=== PATIENT | male | born 1955 | race Caucasian/White ===

== ENCOUNTER 2020-10-14 10:32 | Inpatient (IN) | payer OTHER ==
[~2020-10-14] VITALS: Ht 182.9 cm; Wt 89.8 kg
--- NOTE | 2020-10-14 10:32 | NUR ---
PT BIB SELF C/O L ARM NUMBNESS AND DIZZINESS X 3O MIN TRAILER CHIEF. PT IS AAOX4, NOT IN RESPIRATORY DISTRESS, HOOKED TO DIRECTOR OF EMERGENCY NURSING, KEPT RESTED AND COMFORTABLE. WILL CONTINUE TO MONITOR.
--- NOTE | 2020-10-14 10:43 | NUR ---
blood sugar 128.
[2020-10-14] MEDS ORDERED: MULT-447 PO (10:44)
[2020-10-14] MEDS ORDERED: CHOL100062 PO (10:44)
[2020-10-14] MEDS ORDERED: OMEG1CAP PO (10:44)
--- NOTE | 2020-10-14 10:45 | NUR ---
IV LINE ESTABLISHED BLOOD DRAWN AND SENT TO LAB.
[2020-10-14] MEDS ORDERED: IBUP-23 PO (10:56)
[2020-10-14] MEDS ORDERED: ASPIRIN 300 MG/SUPP.RECT RC ONE ×2 (11:30→11:54)
[2020-10-14 11:47] LABS: BASOPHILS # (AUTO) 0.1 K/uL (0.0-0.2); EOSINOPHILS % (AUTO) 2.3 % (0.0-6.0); HEMATOCRIT 46 % (39-51); HEMOGLOBIN 15.7 g/dL (13.5-17.5); LYMPHOCYTES # (AUTO) 2.8 K/uL (0.8-4.8); MEAN CORPUSCULAR HGB CONC 34 g/dl (31.0-36.0); MEAN CORPUSCULAR VOLUME 93 fL (80-96); MONOCYTES # (AUTO) 0.6 K/uL (0.1-1.30); MONOCYTES % (AUTO) 8.5 % (2.0-12.0); NEUTROPHILS # (AUTO) 3.1 K/uL (1.8-8.9); NEUTROPHILS % (AUTO) 46.2 % (43.0-81.0); PLATELET COUNT (AUTO) 239 K/uL (150-450); RED BLOOD CELL COUNT(AUTO) 4.95 MIL/uL (4.5-6.0); WHITE BLOOD COUNT (AUTO) 6.7 K/uL (4.3-11.0)
[2020-10-14 11:54] LABS: CALCIUM, SERUM 8.8 mg/dL (8.5-10.1); CREATININE 0.9 mg/dL (0.6-1.3); POTASSIUM 3.9 mmol/L (3.5-5.1)
[2020-10-14] MEDS ORDERED: ASPIRIN 325 MG TABLET ONE (12:00)
[2020-10-14 12:01] LABS: ALBUMIN 3.9 g/dL (3.4-5.0); BILIRUBIN,DIRECT 0.1 mg/dL (0.0-0.2); BILIRUBIN,TOTAL 0.6 mg/dL (0.2-1.0)
--- NOTE | 2020-10-14 12:18 | NUR ---
MOVE SHEET SUBMITTED AND CALLED FOR TELE BED.
[2020-10-14] MEDS ORDERED: HEPARIN INFUSION/D5W 500 ML IV PRN (12:30)
[2020-10-14] MEDS ORDERED: ASPIRIN 325 MG TABLET PO ONE (12:30)
[2020-10-14] MEDS ORDERED: hydrALAZINE HCL IV 20 MG VIAL IV ONE (12:30)
[2020-10-14] MEDS ORDERED: hydrALAZINE HCL IV 20 MG VIAL ONE (12:35)
--- NOTE | 2020-10-14 12:48 | NUR ---
MEDICATED FOR ELEVATED BP PER ERMD ORDER, PT ROB WELL. DENIES CP, SOB, N/V AT THIS TIME. PT STILL C/O SLIGHT DIZZINESS & NUMBNESS ON LT ARM. WILL CONT TO MONITOR.
[2020-10-14] MEDS ORDERED: HEPARIN INFUSION/D5W 500 ML IV ONE (13:01)
[2020-10-14] MEDS ORDERED: MAG HYDROX/AL HYDROX/SIMETH 30 ML UDC PO PRN (14:30)
[2020-10-14] MEDS ORDERED: MAGNESIUM HYDROXIDE 30 ML UDC PO PRN (14:30)
[2020-10-14] MEDS ORDERED: ONDANSETRON HCL/PF 4 MG/2 ML VIAL IVP PRN (14:30)
[2020-10-14] MEDS ORDERED: ACETAMINOPHEN 325 MG TABLET PO PRN (14:30)
[2020-10-14] MEDS ORDERED: Z GUARD REMEDY 2 OZ OINT TP PRN (14:30)
[2020-10-14] MEDS ORDERED: hydrALAZINE HCL IV 20 MG VIAL IV PRN (14:30)
[2020-10-14] MEDS ORDERED: LIDOCAINE /MPF 1% VIAL 5 ML VIAL ONE (15:31)
--- NOTE | 2020-10-14 15:37 | NUR ---
MEDICATED FOR ELEVATED BP, PT ROB WELL. DENIES CP, SOB, N/V AT THIS TIME. WILL CONT TO MONITOR.
[2020-10-14] MEDS ORDERED: LIDOCAINE HCL/MPF 1% 30 ML VIAL IJ ONE (17:20)
--- NOTE | 2020-10-14 18:13 | NUR ---
PT ASLEEP EASILY AWAKEN BY VERBAL STIMULI. DENIES CP, SOB, DIZZINESS, N/V AT THIS TIME. WILL CONT TO MONITOR.
--- NOTE | 2020-10-14 20:40 | NUR ---
REPORT GIVEN TO MONSTER CARDENAS FOR [facility].
--- NOTE | 2020-10-14 21:00 | NUR ---
SHIATSU THERAPISTOTR DRIVER NOTE PATIENT ARRIVED ON FLOOR, ALERT/ORIENTED X 4, PT ABLE TO MAKE NEEDS KNOWN. PT DENIES CHEST PAIN AND NAUSEA. PT STATES HE IS NO LONGER FEELING THE LEFT ARM NUMBNESS OR DIZZINESS. PT ON TELEMONITORING READING SINUS [place]IGHT[place], HR; 51. LEFT AC #18G INTACT AND RUNNING HEPARIN DRIP (1350 UNITS/HR, 27 ML/HR). MANAGER CLINICAL RESEARCH CURRENTLY HERE FOR LAB DRAW FOR APTT. PT AMBULATORY AND STEADY WITH BRP. PT SKIN INTACT. BELONGINGS DOCUMENTED AND PLACED IN CHART. ORIENTED PATIENT TO ROOM AND HOW TO USE CALL LIGHT. SAFETY MEASURES IN PLACE: CALL LIGHT WITHIN REACH, BED LOCKED IN LOW POSITION, SIDE RAILS UP X 2. WILL CONTINUE TO MONITOR PATIENT
[2020-10-14] MEDS: METOPROLOL TARTRATE 25 MG TABLET PO SCH (21:45)
[2020-10-14] MEDS: hydrALAZINE HCL 50 MG TABLET PO SCH (21:53)
--- NOTE | 2020-10-14 21:55 | NUR ---
[place] MACHINE OPERATOR NOTES PT'S BP ELEVATED 161/96, HR: 52. eMAR SHOWS SCHEDULED APRESOLINE 50 MG PO AND LOPRESSOR 25 MG PO THAT WERE DUE BEFORE MY SHIFT AND BEFORE PATIENT ARRIVED ON 3W, PER ER NURSE THEY WERE NOT GIVEN IN THE ER. PER ER NURSE ONLY ASPIRIN AND APRESOLINE IV 10 MG WERE GIVEN IN ER. SPOKE TO CHARGE NURSE MARCELA REGARDING THE SCHEDULED APRESOLINE 50 MG PO AND LOPRESSOR 25 MG PO THAT WERE NOT GIVEN IN THE ER, HE STATED TO ONLY GIVE THE APRESOLINE AND NOT BOTH MEDICATIONS SINCE PATIENT HAS HIGH BP BUT IS BRADYCARDIC. APRESOLINE 50 MG PO GIVEN ORDERED. WILL CONTINUE TO MONITOR PATIENT
[2020-10-14 22:00] VITALS: BP 161/96
--- NOTE | 2020-10-14 22:00 | NUR ---
TRANSLATION DIRECTOR NOTES APTT = 51.5, NO CHANGES TO HEPARIN DRIP DOSAGE BASED ON WEIGHT BASED HEPARIN DOSING ORDERS. WILL CONTINUE TO MONITOR PATIENT
[2020-10-15] VITALS: BP 144/76
[2020-10-15 04:00] VITALS: BP 145/75
[2020-10-15 06:12] LABS: BASOPHILS # (AUTO) 0.1 K/uL (0.0-0.2); BASOPHILS % (AUTO) 1.1 % (0.0-2.0); EOSINOPHILS % (AUTO) 2.6 % (0.0-6.0); HEMATOCRIT 44 % (39-51); HEMOGLOBIN 15.4 g/dL (13.5-17.5); LYMPHOCYTES # (AUTO) 2.6 K/uL (0.8-4.8); LYMPHOCYTES % (AUTO) 32.3 % (20.0-44.0); MEAN CORPUSCULAR HGB CONC 35 g/dl (31.0-36.0); MEAN CORPUSCULAR VOLUME 93 fL (80-96); MONOCYTES # (AUTO) 0.6 K/uL (0.1-1.30); MONOCYTES % (AUTO) 7.1 % (2.0-12.0); NEUTROPHILS # (AUTO) 4.5 K/uL (1.8-8.9); NEUTROPHILS % (AUTO) 56.9 % (43.0-81.0); PLATELET COUNT (AUTO) 231 K/uL (150-450); RED BLOOD CELL COUNT(AUTO) 4.79 MIL/uL (4.5-6.0); WHITE BLOOD COUNT (AUTO) 7.9 K/uL (4.3-11.0)
[2020-10-15 06:22] LABS: CALCIUM, SERUM 8.7 mg/dL (8.5-10.1); PHOSPHORUS 4.2 mg/dL (2.5-4.9); POTASSIUM 3.4 mmol/L (3.5-5.1)
--- NOTE | 2020-10-15 06:30 | NUR ---
ACCOUNT UNDERWRITER CLOSING NOTES PT AWAKE IN BED WATCHING TV, ALERT/ORIENTED X 4, PT ABLE TO MAKE NEEDS KNOWN. PT DENIES CHEST PAIN AND NAUSEA. TELEMONITORING READING SINUS LEIGHTON, HR; 51. LEFT AC #18G INTACT AND RUNNING HEPARIN DRIP (1350 UNITS/HR, 27 ML/HR), NO S/S OF BLEEDING. MEDICATIONS GIVEN ORDERED, PT NEEDS MET THROUGHOUT SHIFT. SAFETY MEASURES IN PLACE: CALL LIGHT WITHIN REACH, BED LOCKED IN LOW POSITION, SIDE RAILS UP X 2. WILL ENDORSE TO DAY SHIFT NURSE FOR CONTINUITY OF CARE
--- NOTE | 2020-10-15 08:00 | NUR ---
tele junior php developer: notes ptt 57.7. no change in rate and to continue heparin drip at 1350units/hr per protocol as ordered. next ptt tomorrow morning.
[2020-10-15 08:20] VITALS: BP 150/88
[2020-10-15] MEDS: HEPARIN INFUSION/D5W 500 ML IV PRN (08:29)
[2020-10-15] MEDS: METOPROLOL TARTRATE 25 MG TABLET PO SCH ×2 (08:43→16:56)
--- NOTE | 2020-10-15 08:45 | NUR ---
tele building construction professor: carido consult seen and examined by dr. malloy with new orders. orders acknowledged. pt for cta today and verbalized understanding. consent signed and placed in chart. will continue to monitor.
[2020-10-15] MEDS: hydrALAZINE HCL 50 MG TABLET PO SCH ×3 (08:52→16:57)
[2020-10-15] MEDS: ASPIRIN 325 MG TABLET PO SCH (08:52)
[2020-10-15] MEDS: VALSARTAN 80 MG TABLET PO SCH (08:52)
[2020-10-15] MEDS ORDERED: POTASSIUM CHLORIDE 20 MEQ TAB.PRT.SR PO ONE (10:00)
[2020-10-15] MEDS ORDERED: IOHEXOL-350 100 ML VIAL IV ONE (10:01)
[2020-10-15] MEDS ORDERED: IV NS 0.9% 250 ML IV ONE (10:01)
--- NOTE | 2020-10-15 10:10 | NUR ---
tele director of restaurants: notes pt down for cta via wheelchair accompanied by tech at this time.
[2020-10-15] MEDS ORDERED: NITROGLYCERIN 0.4 MG/TAB BOTTLE ONE (10:28)
[2020-10-15] MEDS ORDERED: METOPROLOL TARTRATE 50 MG TABLET PO PRN (10:30)
[2020-10-15] MEDS ORDERED: NITROGLYCERIN 0.4 MG/TAB BOTTLE SL ONE (10:30)
--- NOTE | 2020-10-15 10:43 | NUR ---
Report given to MONSTER Mckeon for [place]. Patient transported back to [place] [id number] via [facility]. Patient remains in stable condition.
--- NOTE | 2020-10-15 10:50 | NUR ---
tele paste mixer: notes back from cta. no distress noted. instructed to call for assistance. remains on heparin drip at 27ml/hr. will continue to monitor.
[2020-10-15] MEDS ORDERED: LISINOPRIL (10MG) 10 MG TABLET PO SCH (11:00)
--- NOTE | 2020-10-15 11:15 | NUR ---
tele victim advocate: md visit dr. ron at bedside and updating pt plan of care. pt verbalized understanding. informed md that dr. malloy started him on diovan and received verbal order to d'c lisinopril. order carried out and acknowledged.
--- NOTE | 2020-10-15 11:44 | NUR ---
tele hospice volunteer: notes cta resulted. dr. ron and dr. malloy notified and made aware. heparin drip to continue per md. dr. menjivar was notified by dr. malloy per dr. ron to see pt and possible angiogram tomorrow. pt made aware and verbalized understanding. will continue to monitor.
[2020-10-15 12:00] VITALS: BP 129/79
--- NOTE | 2020-10-15 15:25 | NUR ---
tele agricultural agent notes: neuro consult seen and examined by dr. jerry with orders and updated plan of care. orders acknowledged.
--- NOTE | 2020-10-15 15:35 | NUR ---
tele agriculture engineer: notes theater technician called and ask me to call dr. jerry re: cta brain and carotid orders if procedure can be done tomorrow, stated, "pt just had 100 ml of contrast today." dr. katz notified and made aware re: airline radio operator concerns and informed me that the procedure can be done tomorrow, also made aware that pt will have heart cath at 1230pm tomorrow.
--- NOTE | 2020-10-15 16:00 | NUR ---
tele talent solutions manager: notes consents obtained from pt re: heart cath tomorrow at 1230pm and cta brain and carotid tomorrow. all questions and concerns answered. no distress noted. will continue to monitor.
[2020-10-15 16:18] VITALS: BP 140/78
--- NOTE | 2020-10-15 17:00 | NUR ---
tele hvac residential service technician: notes pt refused dinner, stated, "my will bring me something for dinner." needs attended. instructed to call for assistance.
--- NOTE | 2020-10-15 19:00 | NUR ---
tele cylinder devalver: notes report given to halle gillis) for continuity of care.
[2020-10-15 20:00] VITALS: BP_SYST 150; BP_SYST 152; BP_DIAS 78
--- NOTE | 2020-10-15 20:56 | NUR ---
received in bed alert and orientated x4 aware of needing to be NPO after 2400 D/T scheduled procedure at 12:30 HRT Cath denies Chestpain no SOB
[2020-10-16 00:41] VITALS: BP 131/58
[2020-10-16] MEDS: HEPARIN INFUSION/D5W 500 ML IV PRN (03:23)
--- NOTE | 2020-10-16 04:20 | NUR ---
CLOSING NOTES: heparin continues to infuse at 27ml/hr 1350 units/hr thru the night PTT will be drawn at 0530 this AM NPO starting at midnight schedule for a procedure at 12:30 Heart Cath today. consent is signed patient is aware. no sob or chestpain this 12 hours
[2020-10-16 07:47] LABS: CALCIUM, SERUM 8.7 mg/dL (8.5-10.1); CREATININE 1.2 mg/dL (0.6-1.3); POTASSIUM 3.8 mmol/L (3.5-5.1)
--- NOTE | 2020-10-16 07:50 | NUR ---
TELE/RN OPENING NOTES MS/RN OPENING NOTES RECEIVED PATIENT ON BED AWAKE ALERT AND ORIENTEDX4. PATIENT IS ON ROOM AIR. PATIENT IN NO APPARENT RESPIRATORY DISTRESS NOTED. NO COMPLAINED OF PAIN NOTED AT THIS TIME. HEPARIN DRIP AT 1350 UNITS/HR 27ML/HR RUNNING WELL. NO SIGN AND SYMPTOM OF BLEEDING NOTED.WILL CONTINUE OT MONITOR.
[2020-10-16 08:06] VITALS: BP 143/82
[2020-10-16] MEDS ORDERED: IOHEXOL-350 100 ML VIAL IV ONE (08:54)
[2020-10-16] MEDS ORDERED: CT SWABBABLE VALVE TRANS SET 1 EA INFUS.SET MC ONE (08:54)
[2020-10-16] MEDS ORDERED: IV NS 0.9% 250 ML IV ONE (08:54)
[2020-10-16] MEDS: METOPROLOL TARTRATE 25 MG TABLET PO SCH ×2 (09:00→17:00)
[2020-10-16] MEDS: ASPIRIN 325 MG TABLET PO SCH (09:00)
[2020-10-16] MEDS: hydrALAZINE HCL 50 MG TABLET PO SCH ×3 (09:00→17:07)
[2020-10-16] MEDS: VALSARTAN 80 MG TABLET PO SCH (09:00)
--- NOTE | 2020-10-16 10:29 | NUR ---
On Hold per charge nurse brittney Lizarraga having open hearth laborer procedure.
[2020-10-16] MEDS ORDERED: IV NS 0.9% 0 ML IV ONE (14:50)
[2020-10-16] MEDS ORDERED: IV NS 0.9% 1,000 ML ONE (14:50)
--- NOTE | 2020-10-16 14:50 | NUR ---
RN NOTES PATIENT IS ALERT AND ORIENTED X4. PATIENT IS ON ROOM AIR. PATIENT IN NO APPARENT RESPIRATORY DISTRESS NOTED. NO COMPLAINED OF PAIN. PATIENT MANAGER NUCLEAR BY CARDIAC CATH NURSE FOR CARDIAC CATHETERIZATION..
[2020-10-16] MEDS ORDERED: IODIXANOL 150 ML IV ONE (14:51)
[2020-10-16] MEDS ORDERED: IV SET PRIMARY PUMP SET 1 EA INFUS.SET MC ONE (14:52)
[2020-10-16] MEDS ORDERED: VERAPAMIL HCL IV 5 MG/2 ML VIAL ONE (14:52)
[2020-10-16] MEDS ORDERED: MIDAZOLAM HCL 2 MG/2ML VIAL ONE (14:53)
[2020-10-16] MEDS ORDERED: FENTANYL PF 100MCG/2ML AMPUL ONE (14:53)
[2020-10-16] MEDS ORDERED: NITROGLYCERIN IN 5 % DEXTROSE 250 ML IV ONE (15:07)
[2020-10-16] MEDS ORDERED: HEPARIN SODIUM, PORCINE 5000 UNITS/1 ML VIAL ONE ×2 (15:14→15:23)
[2020-10-16] MEDS ORDERED: hydrALAZINE HCL IV 20 MG VIAL ONE (15:37)
[2020-10-16] MEDS ORDERED: LIDOCAINE HCL/PF 1% 30 ML VIAL MC ONE (15:58)
--- NOTE | 2020-10-16 16:23 | NUR ---
RN NOTES PATIENT IS ALERT AND ORIENTED X4. PATIENT IS ON ROOM AIR. PATIENT IN NO APPARENT RESPIRATORY DISTRESS NOTED. NO COMPLAINED OF PAIN. PATIENT CAME BACK IN THE UNIT. WILL CONTINUE TO MONITOR.
[2020-10-16 16:28] VITALS: BP 138/74
[2020-10-16] MEDS ORDERED: IV NS 0.9% 1,000 ML IV ONE (16:30)
--- NOTE | 2020-10-16 16:40 | NUR ---
RN NOTES DR. MURDOCK ORDERVITAL SIGN PER PROTOCOL, ASSESS DISTAL PULSES AND CATHETER INSERTION SITE WITH VITAL SIGN AND MONITOR FOR BLEEDING, 0.9 NS 1L AT 100 ML/HR X 4HOURS, CARDIAC DIET, TELEMETRY, DC TR BAND X1 HR REMOVE 3-5ML OF AIR Q15MIN UNTIL AIR COMPLETELY REMOVE, AND SATBLE AND MEETS DISCHARGED CRITERIA AND AMBULATORY WITHOUT BLEEDING FROM INSERTION SITE IF CLEARED BY OTHER RN OR LPN.
--- NOTE | 2020-10-16 17:09 | NUR ---
RN NOTES METOPROLOL 25MG 1 TAB P.O. NOT ADMINISTERED PULSE 50BPM. WILL CONTINUE TO MONITOR.
[2020-10-16] MEDS ORDERED: UBIQ75CA PO (18:08)
[2020-10-16] MEDS ORDERED: ROSU20TA2 PO (18:08)
[2020-10-16] MEDS ORDERED: OLME40TA12 PO (18:08)
[2020-10-16] MEDS ORDERED: ASPI-1420 PO (18:08)
--- NOTE | 2020-10-16 19:09 | NUR ---
TELE/RN CLOSING NOTES PATIENT IS ALERT AND ORIENTED X4. PATIENT IS ON ROOM AIR. PATIENT IN NO APPARENT RESPIRATORY DISTRESS NOTED. NO COMPLAINED OF PAIN NOTED AT THIS TIME. SEEN AND EXAMINED BY MD WITH ORDERS MADE AND CARRIED OUT. ALL DUE MEDICATIONS WAS GIVEN. IV ACCESS AT LEFT AC # 18g IV FLUID OF NS AT 100 ML/HR [id number] ON AND INFUSING WELL. SAFETY PRECAUTIONS WAS IN PLACED. BED IN LOWEST POSITION AND LOCKED. CALL LIGHT WITHIN REACH. DISCONTINUE TR BAND START AT 1730 REMOVED 3ML OF AIR NO SIGN OF BLEEDING NOTED, 1745 REMOVED AIR 3ML OF AIR NO SIGN OF BLEEDING NOTED, 1900 REMOVED AIR 5ML NO SIGN OF BLEEDING NOTED. WILL ENDORSED TO FIELD PLACEMENT DIRECTOR FOR [place].
--- NOTE | 2020-10-16 19:30 | NUR ---
RN OPENING NOTE PATIENT IN BED AWAKE, WATCHING ON TV. PATIENT IS CURRENTLY ON RA TOLERATING WELL. PATIENT IS ABLE TO MAKE NEEDS KNOWN, A/O X 4. PATIENT'S TELE MONITOR READS SB 59 BPM. PATIENT HAS A LAC 18 G RUNNING IV FLUIDS NS @100 ML X 4 HRS. PATIENT IS TO BE DISCHARGED TODAY AFTER [place] BAND IS DISCONTINUED AND IV FLUIDS COMPLETED. NO BLEEDING ON [place] BAND SITE. SAFETY MEASURES IN PLACE: BED LOCKED AND IN LOWEST POSITION, CALL LIGHT WITHIN REACH, SIDE RAILS UP. WILL MONITOR PATIENT CLOSELY.
[2020-10-16 20:00] VITALS: BP 131/77
--- NOTE | 2020-10-16 20:40 | NUR ---
ID BAND DISCONTINUED. NO BLEEDING NOTED, SITE IS CLEAN. COVERED SITE WITH GAUZE AND TAPE. WILL CONTINUE TO MONITOR FOR BLEEDING UNTIL PATIENT IS DC. WAITING FOR FLUIDS TO FINISH
--- NOTE | 2020-10-16 21:08 | NUR ---
RN D/C NOTE PATIENT IS BEING PICKED UP BY , PATIENT IS STABLE AT THIS TIME, NO COMPLAINS OF PAIN OR DISCOMFORT. PATIENT DOES NOT HAVE ANY BLEEDING ON THE SITE, IV ACCESS TAKEN OFF. EDUCATED PATIENT ON POST OP ANGIOGRAM PRECAUTIONS, EXIT PACKET AND CARE EDUCATION PROVIDED, BELONGINGS RE-CHECKED, AND DISCHARGE ACKNOWLEDGEMENT SIGNED.
== END 2020-10-16 21:10 | disposition home or self-care (01) | DRG 282 ==
LOC: ER 10:36 → TELE 20:26
PROVIDERS: ADMIT Internal Medicine; ATTEND Nurse Practitioner Acute Care
PROC: 4A023N7 Measurement of Cardiac Sampling and Pressure, Left Heart, Percutaneous Approach (ICD-10-PCS; principal; 2020-10-16)
PROC: B211YZZ Fluoroscopy of Multiple Coronary Arteries using Other Contrast (ICD-10-PCS; 2020-10-16)
PROC: B215YZZ Fluoroscopy of Left Heart using Other Contrast (ICD-10-PCS; 2020-10-16)
DX: I25.10 Atherosclerotic heart disease of native coronary artery without angina pectoris (principal); I21.A1 Myocardial infarction type 2; I10 Essential (primary) hypertension; I16.0 Hypertensive urgency; E87.6 Hypokalemia; Z79.899 Other long term (current) drug therapy; Z20.822 Contact with and (suspected) exposure to COVID-19; Z82.49 Family history of ischemic heart disease and other diseases of the circulatory system; Z87.891 Personal history of nicotine dependence
CPT/HCPCS: 36415; 70450-TC; 71045-TC; 75574; 80048-TC; 80061-TC; 80076-TC; 82962-TC; 84100-TC; 84484-TC; 85025-TC; 85730-TC; 87081-TC; 93307-TC; C1887; C9803; G0378; G0500; J0360; J1644; J2250; J3010; J3490; J7030; J7050; Q9967